=== PATIENT | male | born 1965 | race Caucasian/White ===

== ENCOUNTER 2021-12-15 02:42 | Emergency (ER) | payer BC ==
[~2021-12-15] VITALS: Ht 177.8 cm; Wt 97.5 kg
--- NOTE | 2021-12-15 02:51 | NUR ---
TO ER BED 8. 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 CHANGED INTO GOWN. CONNECTED TO MONITOR. NOT IN RESPIRATORY DISTRESS. AWAITNG MD STILES
[2021-12-15] MEDS ORDERED: MORPHINE SULFATE INJ 4 MG/ML DISP.SYRIN ONE ×3 (02:55→10:56)
[2021-12-15] MEDS ORDERED: ONDANSETRON HCL/PF 4 MG/2 ML VIAL ONE ×2 (02:55→08:30)
--- NOTE | 2021-12-15 02:57 | NUR ---
SORAYA HUMPHRIES - PARTNER [phone]
[2021-12-15] MEDS ORDERED: ONDANSETRON HCL/PF 4 MG/2 ML VIAL IVP ONE (03:00)
[2021-12-15] MEDS ORDERED: MORPHINE SULFATE INJ 2 MG/ML DISP.SYRIN IV ONE ×3 (03:00→11:00)
--- NOTE | 2021-12-15 03:05 | NUR ---
LAB AT BEDSIDE
--- NOTE | 2021-12-15 03:20 | NUR ---
PT TAKEN FOR CT SCAN
--- NOTE | 2021-12-15 03:37 | NUR ---
URINE COLLECTED AND SENT TO LAB
[2021-12-15 03:59] LABS: BASOPHILS % (AUTO) 0.3 % (0.0-2.0); EOSINOPHILS % (AUTO) 0.6 % (0.0-6.0); HEMATOCRIT 46 % (39-51); HEMOGLOBIN 15.9 g/dL (13.5-17.5); LYMPHOCYTES # (AUTO) 1.3 K/uL (0.8-4.8); LYMPHOCYTES % (AUTO) 10.3 % (20.0-44.0); MEAN CORPUSCULAR HGB CONC 34 g/dl (31.0-36.0); MEAN CORPUSCULAR VOLUME 88 fL (80-96); MONOCYTES # (AUTO) 0.7 K/uL (0.1-1.30); MONOCYTES % (AUTO) 5.9 % (2.0-12.0); NEUTROPHILS # (AUTO) 10.2 K/uL (1.8-8.9); NEUTROPHILS % (AUTO) 82.9 % (43.0-81.0); PLATELET COUNT (AUTO) 179 K/uL (150-450); RED BLOOD CELL COUNT(AUTO) 5.23 MIL/uL (4.5-6.0); WHITE BLOOD COUNT (AUTO) 12.3 K/uL (4.3-11.0)
[2021-12-15 04:00] LABS: BILIRUBIN,URINE NEGATIVE (NEGATIVE); COLOR,URINE YELLOW (YELLOW); LEUKOCYTE ESTERASE ,URINE NEGATIVE (NEGATIVE); NITRITE, URINE NEGATIVE (NEGATIVE); PROTEIN,URINE NEGATIVE (NEGATIVE); UGLUCOSE NEGATIVE (NEGATIVE); UROBILINOGEN,URINE 0.2 EU/dL (0.2)
[2021-12-15] MEDS ORDERED: hydrALAZINE HCL IV 20 MG VIAL ONE (04:23)
[2021-12-15] MEDS ORDERED: hydrALAZINE HCL IV 20 MG VIAL IV ONE ×2 (04:30→06:00)
[2021-12-15] MEDS ORDERED: DICYCLOMINE HCL INJ 20 MG/2 ML AMPUL IM ONE ×2 (04:49→05:00)
--- NOTE | 2021-12-15 06:16 | NUR ---
Dr. Nilda Blanton - INTERVENTIONAL RADIOLOGY - PAGED [phone]
--- NOTE | 2021-12-15 06:31 | NUR ---
COVID ANTIGEN SWAB COLLECTED AND SENT TO LAB
--- NOTE | 2021-12-15 06:32 | NUR ---
DR KADIE KING - PROFESSOR OF SPORT MANAGEMENT - PAGED
[2021-12-15] MEDS ORDERED: ONDANSETRON HCL/PF 4 MG/2 ML VIAL IV ONE (08:30)
[2021-12-15 08:40] LABS: POTASSIUM 3.6 mmol/L (3.5-5.1)
[2021-12-15 08:41] LABS: BILIRUBIN,TOTAL 0.4 mg/dL (0.2-1.0); CALCIUM, SERUM 9.4 mg/dL (8.5-10.1); CREATININE 1.1 mg/dL (0.6-1.3)
[2021-12-15 08:42] LABS: BILIRUBIN,DIRECT 0.1 mg/dL (0.0-0.2)
--- NOTE | 2021-12-15 08:42 | NUR ---
DR LOUIE MADE AWARE OF PATIENTS BLOOD PRESSURE
[2021-12-15 08:43] LABS: ALBUMIN 4.5 g/dL (3.4-5.0); TOTAL PROTEIN, SERUM 7.2 g/dL (6.4-8.2)
--- NOTE | 2021-12-15 08:57 | NUR ---
FOLLOWED UP TROPONIN BLOOD DRAW WITH MAIN LAB
[2021-12-15] MEDS ORDERED: HYDR-4303 PO (10:27)
--- NOTE | 2021-12-15 11:02 | NUR ---
IV removed. Catheter intact and site benign. Pressure and 4x4 applied to site. No bleeding noted.Patient discharged to home in stable condition. Written and verbal after care instructions given. Patient verbalizes understanding of instruction. The patient is picked up by his partner.
[2021-12-15 11:04] VITALS: BP 127/76
== END 2021-12-15 11:05 | disposition home or self-care (01) ==
LOC: ER 02:44
DX: R10.10 Upper abdominal pain, unspecified (principal); I16.0 Hypertensive urgency; E26.9 Hyperaldosteronism, unspecified; D72.829 Elevated white blood cell count, unspecified; E89.810 Postprocedural hemorrhage of an endocrine system organ or structure following an endocrine system procedure; E27.9 Disorder of adrenal gland, unspecified; Z20.822 Contact with and (suspected) exposure to COVID-19
CPT/HCPCS: 36415; 71045; 74176; 80048; 80076; 81003; 83690; 84484 ×2; 85025; 85730; 87426; 93005; 96372 ×2; 96376; 99285; C9803; G0168; J0360; J0500; J2270 ×3; J2405 ×2